=== PATIENT | male | born 1965 | race Caucasian/White ===

== ENCOUNTER → 2016-06-30 | Outpatient (CLI) | payer BC ==
[~2016-06-30] VITALS: Ht 180.3 cm; Wt 131.0 kg
[~2016-06-30] MED LIST: DXY/100 PO; IBUP-1050 PO; ONDA4TAB10 SL; OXYC-57 PO; PHEN-905 PO
[2016-06-30 15:48] VITALS: BP 137/84; PULSE 91; Ht 180.3 cm; Wt 131.0 kg
== END | disposition home or self-care (01) ==
LOC: C.NEUR 15:39
PROVIDERS: ATTEND Internal Medicine Pulmonary Disease
DX: G47.30 Sleep apnea, unspecified (principal); E66.9 Obesity, unspecified; I10 Essential (primary) hypertension

== ENCOUNTER 2016-08-03 10:53 | Emergency (ER) | payer OTHER, BC ==
[~2016-08-03 10:53] MED LIST changes: -IBUP-1050 PO; -ONDA4TAB10 SL; -OXYC-57 PO
[2016-08-03 11:03] VITALS: TEMP 36.3; Ht 180.3 cm
[2016-08-03] MEDS ORDERED: ONDANSETRON 4MG OD TAB PO STA (11:52)
[2016-08-03] MEDS ORDERED: MoRPHine SULFATE 4 MG/ML 1 ML CARP\\VIAL IM ONE (12:00)
--- NOTE | 2016-08-03 12:39 | DIAGNOSTIC IMAGING REPORT ---
RIGHT SHOULDER MIN 2 VIEWS ROUTINE CLINICAL HISTORY: R shoulder pain Right trauma COMPARISON: None. DISCUSSION: Poorly defined nondisplaced fracture right humeral neck. No evidence of dislocation. Degenerative change acromioclavicular joint. All remaining osseous structures are unremarkable. There is no evidence for soft tissue swelling. IMPRESSION: Nondisplaced oblique fracture humeral neck Electronically signed by: Cj Butler M.D. 08/03/2016 12:38 PM Dictated Date/Time: 08/03/2016 12:37 PM
[2016-08-03] MEDS ORDERED: OXYCODONE/ACETAMINOPHEN 5-325 TAB PO STA (13:23)
[2016-08-03] MEDS ORDERED: OXYC-57 PO (14:20)
[2016-08-03 14:40] VITALS: BP 147/78; PULSE 75; O2SAT 100
--- NOTE | 2016-08-03 14:50 | DIAGNOSTIC IMAGING REPORT ---
RIGHT SHOULDER 1 VIEW CLINICAL HISTORY: RIGHT SHOULDER PAIN - AXILLARY ONLY Right pain COMPARISON: None. DISCUSSION: Apparent nondisplaced fracture humeral neck. There is no evidence for soft tissue swelling. IMPRESSION: Probable nondisplaced fracture humeral neck Electronically signed by: Cj Butler M.D. 08/03/2016 2:49 PM Dictated Date/Time: 08/03/2016 2:48 PM
--- NOTE | 2016-08-03 17:36 | EMERGENCY ROOM VISIT NOTE ---
History First contact with patient: 11:29 Chief Complaint: SHOULDER DISLOCATION Stated Complaint: FELL, RT SHOULDER DISLOCATION-WORK RELATED INJURY History of Present Illness The patient is a 50 year old white male who presents to the Emergency Room with complaints of right shoulder pain. Patient states he was at work today at [employer]. 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 He opened the door with 1 hand and slipped on the wet tile. He states his hand got caught in the handle and he fell onto the ground, landing on his right side. He had immediate onset of pain in the right shoulder. He has not been able to move it. He was sent here out of concerns for shoulder dislocation. No prior history of significant right shoulder injury. [id number]. No numbness or tingling. He denies any pain in the wrist. He states he may have struck his right elbow as well, as it is sore. It is not painful compared to the shoulder. He also may have struck the left side of his head. He denies any loss of consciousness. He states the area is sore currently but has no significant pain. He denies any neck pain, back pain, or change in vision, speech, or hearing. No treatment yet. His accompanies him today. Review of Systems REVIEW OF SYSTEM: HEENT: No dizziness, visual problems, hearing loss, or tinnitus. There is no difficulty swallowing and no oral lesions are present. LYMPH: No adenopathy. PULMONARY: No cough, shortness of breath, sputum production or hemoptysis. CARDIOVASCULAR: No chest pain, palpitations, shortness of breath or peripheral edema. GASTROINTESTINAL: No diarrhea, constipation, nausea, vomiting, or abdominal pain. GENITOURINARY: No dysuria, frequency, urgency or nocturia. NEUROLOGIC: No weakness, muscle tenderness, epilepsy or history of neurological problems. MUSCULOSKELETAL: No history of joint tenderness/swelling. No history of arthritis or arthralgias. SKIN: No rashes or lesions. PSYCHIATRIC: No history of depression or mental illness. ENDOCRINE: No history of diabetes, thyroid disorders, or abnormal hair growth. Past Medical/Surgical History Previous surgeries: None Medical history: Significant for obesity. Family History Noncontributory. Social History Smoking Status: Never Smoker Smokeless Tobacco Use: No Alcohol Use: none Drug Use: none Marital Status: Housing Status: lives with family Occupation Status: employed Current/Historical Medications Scheduled PRN Oxycodone/Acetaminophen 5MG/325MG (Percocet 5MG/325MG), 1-2 TABS PO Q6H PRN for Pain Allergies Coded Allergies: No Known Allergies (Verified , 08/03/16) Physical Exam Vital Signs Date Time Temp Pulse Resp B/P Pulse Ox O2 Delivery O2 Flow Rate FiO2 08/03/16 14:40 75 20 147/78 100 08/03/16 13:41 85 20 146/86 97 08/03/16 11:03 36.3 83 18 159/84 99 Room Air Pain Rating (0-10): 5.0 Physical Exam Gen.: Well-developed, well-nourished, middle-aged white male, in obvious discomfort. No acute distress. Sitting on a bed. Alert and oriented. Skin: Warm and dry with good turgor. No rashes or lesions. No ecchymosis or erythema. The patient is not diaphoretic. No abrasions. HEENT: Normocephalic atraumatic. Eyes PERRLA, EOMI. No conjunctiva or scleral injection. Nares patent bilaterally without turbinate enlargement. No significant drainage. No epistaxis. Oropharynx without erythema or exudate. Patient has no discomfort with palpation over his scalp or the periauricular area. No visible ecchymosis, edema, depression, or abrasion. Musculoskeletal: Patient has no discomfort with palpation over his cervical spine or thoracic spine. Full range of motion of the neck. No pain with palpation over the clavicles. Significant discomfort with palpation over the proximal humerus. No fullness in the anterior chest to suggest dislocation. Moderate discomfort with palpation over his bicep and tricep. No palpable defect. Mild discomfort palpation over the right elbow. Full flexion and extension of the elbow as well as supination and pronation. No pain with palpation over the forearm, wrist, or digits. Normal motor function for the fingers and wrist. He has been ambulatory with a normal gait. Neurologic: Cranial nerves II through XII are intact. Gross sensation is intact across both upper extremities by soft touch. Peripheral pulses are 2+. Medical Decision & Procedures ER Provider Diagnostic Interpretation: Radiographic imaging obtained today of the right shoulder confirms proximal humeral fracture, nondisplaced. No evidence for dislocation. Films were read by radiology. Medications Administered Medications (Trade) Dose Ordered Sig/Emmett Route Start Time Stop Time Status Last Admin Dose Admin Morphine Sulfate (MoRPHine SULFATE INJ) 4 mg ONE ONCE IM 08/03/16 12:00 08/03/16 12:01 DC 08/03/16 12:09 4 MG Ondansetron HCl (Zofran Odt) 4 mg NOW STAT PO 08/03/16 11:52 08/03/16 11:55 DC 08/03/16 12:08 4 MG Oxycodone/ Acetaminophen (Percocet 5-325mg Tab) 2 tab NOW STAT PO 08/03/16 13:23 08/03/16 13:25 DC 08/03/16 13:39 2 TAB Morphine 4 mg IM, Zofran 4 mg ODT, Percocet 2 tablets by mouth ED Course Patient and his are educated regarding today's findings. Conservative care measures were discussed. He was given morphine 4 mg IM and Zofran 4 mg ODT for pain control. Pain improved slightly. He was given an additional 2 tablets of Percocet. Radiographic imaging was obtained. He was reassured that I do not suspect dislocation. Sling was provided. Additional prescription for Percocet was given, to be used every 6 hours as needed for more severe pain. He may use Tylenol and Motrin every 6 hours for mild discomfort. Follow-up with the orthopedic office contracted by his Worker's Compensation provider. Ice and elevate frequently to reduce pain and swelling. Keep the splint on at all times other than bathing. He may feel better sleeping upright. He may not return to work until cleared by his orthopedist. Return to the ED for any acute changes. CT scan imaging of his head was discussed. He declined at this time. Medical Decision Possibility of intracranial injury, facial fracture, cervical spine injury, arm fracture, rotator cuff injury, dislocation, contusion, and sprain were considered. Impression Primary Impression: Proximal humeral fracture Departure Information Dispostion Home / Self-Care Condition FAIR Prescriptions Oxycodone/Acetaminophen 5MG/325MG (PERCOCET 5MG/325MG) Tab 1-2 TABS PO Q6H Y for Pain, #24 TAB For Initial Treatment Prov: Bolivar Anderson,P.A. 08/03/16 Forms WORK / SCHOOL INSTRUCTIONS, HOME CARE DOCUMENTATION FORM, SPECIAL NARCOTICS INSTRUCTIONS, MOTRIN USE, IMPORTANT VISIT INFORMATION Patient Instructions Fractures - [facility], [facility] Additional Instructions Use the sling at all times for support and comfort Sleeping upright may improve your discomfort Ice frequently to the shoulder 3 days Percocet 1-2 tablets every 6 hours as needed for severe pain Do not drive Call your orthopedist as dictated by worker's comp, for follow-up this week Return to the ED for any acute changes or worsening of symptoms No work until cleared by your orthopedist Problem Qualifiers Primary Impression: Proximal humeral fracture Encounter type: initial encounter Fracture type: closed Fracture morphology : other fracture Fracture alignment: nondisplaced Laterality: right Qualified Codes: S42.294A - Other nondisplaced fracture of upper end of right humerus, initial encounter for closed fracture
== END 2016-08-03 14:44 | disposition home or self-care (01) ==
LOC: C.EDB 10:54 → C.EDD 14:44
DX: S42.294A Other nondisplaced fracture of upper end of right humerus, initial encounter for closed fracture (principal); W01.0XXA Fall on same level from slipping, tripping and stumbling without subsequent striking against object, initial encounter; Y92.59 Other trade areas as the place of occurrence of the external cause; Y99.0 Civilian activity done for income or pay; Y93.89 Activity, other specified

== ENCOUNTER 2016-08-05 18:03 | Emergency (ER) | payer BC, OTHER ==
[~2016-08-05] VITALS: Ht 180.3 cm; Wt 125.0 kg
[~2016-08-05 18:03] MED LIST changes: +OXYC-57 PO
[2016-08-05 18:08] VITALS: TEMP 36.6; Ht 180.3 cm; Wt 125.0 kg
[2016-08-05] MEDS ORDERED: IBUP-1050 PO (18:23)
[2016-08-05] MEDS ORDERED: ONDANSETRON INJ 2 MG/ML 2 ML VIAL IV PRN (19:00)
[2016-08-05 19:03] LABS: HEMATOCRIT 41.7 % (42-52); MEAN CELL VOLUME 87.4 fL (80-100); MEAN CORPUSCULAR HEMOGLOBIN 30.4 pg (25-34); MEAN CORPUSCULAR HGB CONC 34.8 g/dl (32-36); PLATELET COUNT 183 K/uL (130-400); RED BLOOD COUNT 4.77 M/uL (4.7-6.1); WHITE BLOOD COUNT 9.57 K/uL (4.8-10.8)
[2016-08-05 19:20] LABS: CALCIUM 8.5 mg/dl (8.5-10.1); POTASSIUM 4.1 mmol/L (3.5-5.1)
--- NOTE | 2016-08-05 19:20 | DIAGNOSTIC IMAGING REPORT ---
HEAD CT NONCONTRAST CT DOSE: 687.98 mGy.cm HISTORY: Mental status change dizzy recent fall TECHNIQUE: Multiaxial CT images of the head were performed without the use of intravenous contrast. Comparison: None. Findings: The paranasal sinuses and mastoid air cells are clear. The calvarium and skull base are intact. The ventricles and sulci are within normal limits. There is no mass, hematoma, midline shift, or acute infarct. Impression: No acute intracranial abnormality. Electronically signed by: Cj Butler M.D. 08/05/2016 7:19 PM Dictated Date/Time: 08/05/2016 7:15 PM
--- NOTE | 2016-08-05 19:44 | EMERGENCY ROOM VISIT NOTE ---
History Report prepared by Ailyn: Tien Little Under the Supervision of: Dr. Yogi Tate M.D. First contact with patient: 18:20 Chief Complaint: DIZZY Stated Complaint: DIZZINESS, WEAKNESS History of Present Illness The patient is a 50 year old male who presents to the Emergency Room with complaints of waxing and waning dizziness that began two hours prior to arrival. The patient states that his dizziness is worsened by laying down, or tipping his head back. When he lays down it feels as though the room is spinning. The patient was in the emergency department on Thursday, two days prior to this visit for a broken arm that the patient suffered secondary to a falling episode. The patient did hit his head on the ground during this fall. He did not lose consciousness at any time. He denies any vision changes or current headaches, but does have some pain in the right posterior neck. He does note experiencing some nausea, tinnitus in the left ear and pain in the right posterior neck. He has never had dizzy episodes such as this in the past. 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 Review of Systems All systems have been listed, reviewed, and are negative other than those previously mentioned. Please see Additional Medical History Sheet. Past Medical & Surgical Medical Problems: (1) Stomach ulcer Family History Patient notes no family history. Social History Smoking Status: Never Smoker Alcohol Use: none Drug Use: none Marital Status: Housing Status: lives with family Occupation Status: employed Current/Historical Medications Scheduled Ondasetron Odt (Zofran Odt), 4 MG SL Q6H Scheduled PRN Ibuprofen (Advil), 200-600 MG PO Q4H PRN for Pain Allergies Coded Allergies: No Known Allergies (Verified , 08/05/16) Physical Exam Vital Signs Date Time Temp Pulse Resp B/P Pulse Ox O2 Delivery O2 Flow Rate FiO2 08/05/16 21:03 78 18 166/96 99 Room Air 08/05/16 19:00 75 16 149/89 96 Room Air 08/05/16 18:08 36.6 74 18 147/88 98 Physical Exam GENERAL: Patient awake, alert, oriented x 3. In mild distress. Patient follows commands. Patient does not appear toxic. Patient is adequately hydrated and well-nourished. SKIN: No erythema, pallor, cyanosis or rash HEENT: Normal head, pupils equal, reactive to light and accommodation. Positive hill/pike test without nystagmus. Ears normal. Oral cavity and posterior pharynx appear normal. Neck: Without adenopathy, no neck vein distention. LUNGS: Clear to auscultation. No wheezes, no rales, no rhonchi. HEART: No murmurs. No gallops. No rubs ABDOMEN: No masses, no rebound, no hepatomegaly or splenomegaly. EXTREMITIES: Right arm is in a sling. NEUROLOGIC: Cranial nerves II-XII within normal limits. No gross motor sensory function deficits. Medical Decision & Procedures ER Provider Diagnostic Interpretation: X-ray results as stated below per my interpretation and radiologist interpretation. Other radiology results as stated below per my review and radiologist interpretation: HEAD CT NONCONTRAST CT DOSE: 687.98 mGy.cm HISTORY: Mental status change dizzy recent fall TECHNIQUE: Multiaxial CT images of the head were performed without the use of intravenous contrast. Comparison: None. Findings: The paranasal sinuses and mastoid air cells are clear. The calvarium and skull base are intact. The ventricles and sulci are within normal limits. There is no mass, hematoma, midline shift, or acute infarct. Impression: No acute intracranial abnormality. Electronically signed by: Cj Butler M.D. 08/05/2016 7:19 PM Dictated Date/Time: 08/05/2016 7:15 PM Laboratory Results 08/05/16 14:50 08/05/16 14:50 Test 08/05/16 14:50 Red Blood Count 4.77 M/uL (4.7-6.1) Mean Corpuscular Volume 87.4 fL (80-100) Mean Corpuscular Hemoglobin 30.4 pg (25-34) Mean Corpuscular Hemoglobin Concent 34.8 g/dl (32-36) RDW Standard Deviation 39.2 fL (36.4-46.3) RDW Coefficient of Variation 12.2 % (11.5-14.5) Mean Platelet Volume 9.0 fL (7.4-10.4) Anion Gap 7.0 mmol/L (3-11) Est Creatinine Clear Calc Drug Dose 120.3 ml/min Estimated GFR () 102.0 Estimated GFR (Non- 88.0 BUN/Creatinine Ratio 12.0 (10-20) Calcium Level 8.5 mg/dl (8.5-10.1) Laboratory results as stated above per my review. Medications Administered Medications (Trade) Dose Ordered Sig/Emmett Route Start Time Stop Time Status Last Admin Dose Admin Ondansetron HCl (Zofran Inj) 4 mg Q1HWA PRN IV 08/05/16 19:00 08/05/16 21:20 DC 08/05/16 20:55 4 MG Ondansetron HCl (ZOFRAN ODT 4MG Home Pack) 1 homepack UD ONCE PO 08/05/16 20:45 08/05/16 20:46 DC 08/05/16 20:53 1 HOMEPACK ED Course 1820: The patient was evaluated by the medical student at this time. 1849: Past medical records reviewed. The patient was evaluated in room C10. A complete history and physical examination was performed. 1899: Ordered Zofran 4 mg IV. 2044: Ordered Zofran 1 homepack PO. 2046: Upon reevaluation, the patient appeared to have improvement of his symptoms. His nausea has resolved at this time. I discussed today's findings with him. He verbalized agreement of the treatment plan. The patient was discharged home. Medical Decision Differential Diagnosis include: Benign positional vertigo, closed head injury, cerebrovascular accident, transient ischemic attack, electrolyte imbalance, hypoglycemia, hypotension, Meniere's Multiple labs and CT were obtained. Please see above. The patient improved markedly with Zofran. The patient had an equivocal [place] test. He did not have nystagmus but did become more symptomatic when laying down. Patient will continue Zofran as needed. Impression Primary Impression: Benign positional vertigo Scribe Attestation The scribe's documentation has been prepared under my direction and personally reviewed by me in its entirety. I confirm that the note above accurately reflects all work, treatment, procedures, and medical decision making performed by me. Departure Information Dispostion Home / Self-Care Prescriptions Ondasetron Odt (ZOFRAN ODT) 4 Mg Tab 4 MG SL Q6H for Nausea, #6 TAB Prov: Yogi Tate M.D. 08/05/16 Referrals Werner Tejeda M.D. (PCP) Patient Instructions [facility] Additional Instructions 1 Zofran every 4 hours as needed for nausea. Continue your current medications as prescribed. Return here if nausea/vertigo are not controlled with Zofran.
[2016-08-05] MEDS ORDERED: ONDA4TAB10 SL (20:40)
[2016-08-05] MEDS ORDERED: ONDANSETRON HOME PACK 4MG OD TAB PO ONE (20:45)
[2016-08-05 21:03] VITALS: BP 166/96; PULSE 78; O2SAT 99
== END 2016-08-05 20:59 | disposition home or self-care (01) ==
LOC: C.EDB 18:04 → C.EDC 20:59
DX: H81.10 Benign paroxysmal vertigo, unspecified ear (principal); K25.9 Gastric ulcer, unspecified as acute or chronic, without hemorrhage or perforation

== ENCOUNTER → 2017-06-17 | Day surgery (SDC) | payer BC, OTHER ==
[2017-06-02 11:37] VITALS: BMI 38.0
[~2017-06-17] VITALS: Ht 180.3 cm; Wt 125.0 kg
[~2017-06-17] MED LIST changes: +ACETAMINOPHEN 1000 MG/100 ML IV IV ONE; +ACETAMINOPHEN 500 MG TAB PO ONE; +ACETAMINOPHEN 500 MG TAB PO STA; -DXY/100 PO; +LIDOCAINE HCL 2% 2 ML VIAL (20MG/ML) ONE; +MULT-506 PO; -OXYC-57 PO; -PHEN-905 PO; +PROPOFOL IV EMULSION 10 MG/ML 20 ML VIAL IV ONE; +SODIUM CHLORIDE 0.9% 500ML 500 ML IV ONE
[2017-06-17 09:05] VITALS: Ht 180.3 cm; Wt 125.0 kg
--- NOTE | 2017-06-17 09:48 | Endo History and Physical ---
History & Physical Date of Service: Jun 17, 2017. Chief Complaint: SCREENING Referring Physician: Amy MILLER History of Present Illness 51 yo CM who presents for screening colonoscopy. Past Surgical History Hx Cardiac Surgery: No Hx Internal Defibrillator: No Hx Pacemaker: No Hx Abdominal Surgery: No Hx of Implantable Prosthesis: No Hx Post-Op Nausea and Vomiting: No Hx Cancer Surgery: No Hx Thoracic Surgery: No Hx Orthopedic: No Hx Urinary Tract Surgery: No Family History None Social History Smoking Status: Never Smoker Hx Substance Use: No Hx Alcohol Use: No Allergies Coded Allergies: No Known Allergies (Verified , 06/17/17) Current Medications Reported Home Medications Medications Dose Route/Sig Max Daily Dose Days Date Category Multivitamin (Multivitamins) Tab 1 Tab PO DAILY 06/02/17 Reported Vital Signs Weight (Kilograms): 125.00 Height (Feet): 5 Height (Inches): 11 Date Time Temp Pulse Resp B/P (MAP) Pulse Ox O2 Delivery O2 Flow Rate FiO2 06/17/17 09:23 37 96 18 154/84 (107) 99 Room Air Physical Exam General Appearance: WD/WN, no apparent distress Respiratory/Chest: Auscultation: breath sounds normal Cardiovascular: Heart Auscultation: RRR Abdomen: Bowel Sounds: normal Inspection & Palpation: soft, non-distended, no tenderness, guarding & rebound Assessment and Plan Assessment: 51 yo CM who presents for screening colonoscopy. Plan: Proceed with colonoscopy.
--- NOTE | 2017-06-17 10:37 | GI REPORT ---
Procedure Date: 06/17/2017 9:41 AM Procedure: Colonoscopy Indications: Change in bowel habits Medicines: Monitored Anesthesia Care Complications: No immediate complications. Estimated Blood Loss: Estimated blood loss: none. Procedure: Pre-Anesthesia Assessment: - Prior to the procedure, a History and Physical was performed, and patient medications and allergies were reviewed. The patient's tolerance of previous anesthesia was also reviewed. The risks and benefits of the procedure and the sedation options and risks were discussed with the patient. All questions were answered, and informed consent was obtained. Prior Anticoagulants: The patient has taken no previous anticoagulant or antiplatelet agents. ASA Grade Assessment: II - A patient with mild systemic disease. After reviewing the risks and benefits, the patient was deemed in satisfactory condition to undergo the procedure. After I obtained informed consent, the scope was passed under direct vision. Throughout the procedure, the patient's blood pressure, pulse, and oxygen saturations were monitored continuously. The scope was introduced through the anus and advanced to the terminal ileum. The colonoscopy was performed without difficulty. The patient tolerated the procedure well. The quality of the bowel preparation was good. The terminal ileum, ileocecal valve, appendiceal orifice, and rectum were photographed. Findings: The perianal and digital rectal examinations were normal. Three sessile polyps were found in the descending colon. The polyps were 2 to 3 mm in size. These polyps were removed with a cold snare. Resection was complete, but the polyp tissue was only partially retrieved. Impression: - Three 2 to 3 mm polyps in the descending colon, removed with a cold snare. Complete resection. Partial retrieval. Recommendation: - Resume previous diet. - Continue present medications. - Repeat colonoscopy for surveillance based on pathology results. - Return to primary care physician as previously scheduled. Chi Peterson DO 06/17/2017 10:36:29 AM This report has been signed electronically. Note Initiated On: 06/17/2017 9:41 AM I attest to the content of the Intraoperative Record and orders documented therein, exceptions below
--- NOTE | 2017-06-17 10:38 | Discharge Instructions ---
Endoscopy Patient Instructions Date / Procedure(s) Performed Jun 17, 2017. Colonoscopy Allergy Information Coded Allergies: No Known Allergies (Verified , 06/17/17) Discharge Date / Findings Jun 17, 2017. Colon polyps Medication Instructions OK to resume all medications today as prescribed Reported Home Medications Medications Dose Route/Sig Max Daily Dose Days Date Category Multivitamin (Multivitamins) Tab 1 Tab PO DAILY 06/02/17 Reported Provider Instructions Activity Restrictions - No exercising or heavy lifting for 24 hours. - Do not drink alcohol the day of the procedure. - Do not drive a car or operate machinery until the day after the procedure. - Do not make any important decisions or sign important papers in 24 hours after the procedure. Following Day: - Return to full activity which may include returning to work/school. Diet Start your diet with liquids and light foods (jello, soup, juice, toast). Then eat your usual diet if not nauseated. Treatment For Common After Affects For mild abdominal pain, bloating, or excessive gas: - Rest - Eat lightly - Lie on right side Follow-Up Information Follow-up with Amy MILLER as scheduled Anesthesia Information What You Should Know You have had a procedure that required some medicine to reduce anxiety and discomfort. This treatment is called moderate sedation. After receiving the treatment, you may be sleepy, but you will be able to breathe on your own. The effects of the treatment may last for several hours. Follow these instructions along with Activity/Diet recommendations noted above: * Do NOT do anything where dizziness or clumsiness would be dangerous. * Rest quietly at home today, then you can be up and about tomorrow. * Have a responsible person stay with you the rest of today. * You may have had an I.V. today. If so, you may take the dressing off later today. Recommendations Call your doctor if: * Trouble breathing * Continuous vomiting for more than 24 hours * Temperature above 101 degrees * Severe abdominal pain or bloating * Pain not relieved by pain medicine ordered * There is increased drainage or redness from any incision * A large amount of rectal bleeding greater than 2-3 tablespoons. (If you had a polyp/s removed or have hemorrhoids, a small amount of blood - from the rectum is to be expected.) * You have any unanswered questions or concerns. IN THE EVENT OF A SERIOUS EMERGENCY, GO TO THE NEAREST EMERGENCY ROOM Your discharge instructions were prepared by provider Chi Peterson. Patient Instructions Signature Page Taj Tafoya Patient (or Guardian) Signature/Date: I have read and understand the instructions given to me by my caregivers. Caregiver/RN/Doctor Signature/Date: The above-named patient and/or guardian has received patient instructions on this date. + Original Patient Signature Page (only) stays with chart. Please make copy for patient.
--- NOTE | 2017-06-17 11:01 | Anesthesiology Progress Note ---
Anesthesia Post Op Note Date & Time Jun 17, 2017 at 11:01 Vital Signs Pain Intensity: 0 Vital Signs Past 12 Hours Date Time Temp Pulse Resp B/P (MAP) Pulse Ox O2 Delivery O2 Flow Rate FiO2 06/17/17 10:51 81 16 140/95 (110) 99 Room Air 06/17/17 10:36 96 16 134/95 (108) 96 Room Air 06/17/17 09:23 37 96 18 154/84 (107) 99 Room Air Notes Mental Status: alert / awake / arousable, participated in evaluation Pt Amnestic to Procedure: Yes Nausea / Vomiting: adequately controlled Pain: adequately controlled Airway Patency, RR, SpO2: stable & adequate BP & HR: stable & adequate Hydration State: stable & adequate Anesthetic Complications: no major complications apparent
[2017-06-17 11:05] VITALS: BP 125/74; PULSE 79; O2SAT 97
== END | disposition home or self-care (01) ==
LOC: C.GI 08:32
PROVIDERS: ATTEND Internal Medicine
DX: R19.4 Change in bowel habit (principal); D12.4 Benign neoplasm of descending colon; G47.33 Obstructive sleep apnea (adult) (pediatric); K21.9 Gastro-esophageal reflux disease without esophagitis